=== PATIENT | female | born 1955 | race Asian ===

== ENCOUNTER → 2016-07-19 | Outpatient (CLI) | payer OTHER ==
[~2016-07-19] MED LIST: ALBU8.5H3 INH; AMLO2.5T PO; CHOL200012 PO; ESTR1TAB15 PO; FLUT9.9S NAS; MOME13HF2 INH; MONT10TA9 PO; MULT-6 PO; TRIA10.8 NAS
== END | disposition home or self-care (01) ==
LOC: CFH 09:45
PROVIDERS: ATTEND Internal Medicine
DX: Z12.31 Encounter for screening mammogram for malignant neoplasm of breast (principal)
CPT/HCPCS: G0202